=== PATIENT | male | born 1955 | race Hispanic/Latino ===

== ENCOUNTER 2022-06-03 13:04 | Emergency (ER) | payer MEDICARE ==
[~2022-06-03] VITALS: Ht 167.6 cm; Wt 104.3 kg
[2022-06-03] MEDS ORDERED: NEURONTIN300 MG PO (13:58)
[2022-06-03] MEDS ORDERED: CEPHALEXIN500 MG PO (13:58)
== END 2022-06-03 14:07 | disposition home or self-care (01) ==
LOC: ER 13:10
DX: M79.672 Pain in left foot (principal); E11.42 Type 2 diabetes mellitus with diabetic polyneuropathy; I10 Essential (primary) hypertension; E78.5 Hyperlipidemia, unspecified
CPT/HCPCS: 99282